=== PATIENT | female | born 1965 | race Caucasian/White ===

== ENCOUNTER 2020-11-04 12:58 | Emergency (ER) | payer MEDICARE, OTHER ==
[~2020-11-04] VITALS: Ht 162.6 cm; Wt 136.4 kg
[~2020-11-04 12:58] MED LIST: TNFMISC
[2020-11-04] MEDS ORDERED: BENZ2TAB10 PO (13:09)
[2020-11-04] MEDS ORDERED: ZOLP-280 PO (13:09)
[2020-11-04] MEDS ORDERED: CHOL500013 PO (13:09)
[2020-11-04] MEDS ORDERED: FLUO20CA36 PO (13:09)
[2020-11-04] MEDS ORDERED: TOPI100T37 PO (13:09)
[2020-11-04] MEDS ORDERED: IBUPROFEN 600 MG TABLET PO ONE (15:00)
[2020-11-04 15:49] LABS: BASOPHILS % (AUTO) 0.6 % (0.0-2.0); HEMATOCRIT 37.8 % (36-46); HEMOGLOBIN 12.4 g/dL (12.0-16.0); LYMPHOCYTES # (AUTO) 1.6 K/uL (1.0-4.8); LYMPHOCYTES % (AUTO) 18.5 % (22.0-44.0); MEAN CORPUSCULAR HEMOGLOBIN 29.5 pg (26.0-34.0); MEAN CORPUSCULAR HGB CONC 32.8 G/dL (31.0-37.0); MEAN CORPUSCULAR VOLUME 90 fL (80-100); MONOCYTES # (AUTO) 0.6 K/uL (0.1-1.0); MONOCYTES % (AUTO) 7.1 % (2.0-9.0); NEUTROPHILS # (AUTO) 6.1 K/uL (1.8-7.7); NEUTROPHILS % (AUTO) 71.8 % (40.0-70.0); PLATELET COUNT (AUTO) 235 K/uL (150-450); RED CELL DISTRIBUTION WIDTH 13.2 % (11.5-14.5)
[2020-11-04 16:07] LABS: ANION GAP 8 mmol/L (8-16); CALCIUM, TOTAL 8.7 mg/dL (8.8-10.5); CARBON DIOXIDE 25 mmol/L (22-29); CHLORIDE 105 mmol/L (98-107); CREATININE 0.92 mg/dL (0.60-1.30); GLOMERULAR FILTR. RATE CALC > 60 mL/min (>60); GLUCOSE,RANDOM 94 mg/dL (70-110); POTASSIUM 4.2 mmol/L (3.5-5.1); SODIUM SERUM 138 mmol/L (136-145); UREA NITROGEN, BLOOD 12 mg/dL (7-18)
[2020-11-04 16:13] LABS: ALANINE AMINOTRANSFERASE 16 U/L (12-78); ALBUMIN 3.5 g/dL (3.4-5.0); ALKALINE PHOSPHATASE 74 U/L (46-116); ASPARTATE AMINOTRANSFERASE 9 U/L (15-37); BILIRUBIN,TOTAL 0.3 mg/dL (0.1-1.0); TOTAL PROTEIN, SERUM 7.2 g/dL (6.4-8.2)
[2020-11-04 17:10] VITALS: BP 132/103
== END 2020-11-04 17:59 | disposition home or self-care (01) ==
LOC: EMS 13:12
DX: M13.872 Other specified arthritis, left ankle and foot (principal); M13.871 Other specified arthritis, right ankle and foot; R25.2 Cramp and spasm; R60.0 Localized edema; Z59.0 Homelessness
CPT/HCPCS: 80053; 85025; 85379; 93970; 99284

== ENCOUNTER 2021-11-16 01:00 | Emergency (ER) | payer MEDICARE, OTHER ==
[~2021-11-16] VITALS: Ht 160 cm; Wt 136.4 kg
[~2021-11-16 01:00] MED LIST changes: +BENZ2TAB76 PO; +CHOL500013 PO; +FLUO20CA36 PO; -TNFMISC; +TOPI100T37 PO; +ZOLP-280 PO
[2021-11-16 03:30] VITALS: BP 137/81
== END 2021-11-16 04:07 | disposition home or self-care (01) ==
LOC: EMS 01:01
DX: M54.2 Cervicalgia (principal); Z79.899 Other long term (current) drug therapy
CPT/HCPCS: 99281; Z7502

== ENCOUNTER 2023-07-17 16:32 | Emergency (ER) | payer OTHER ==
[~2023-07-17] VITALS: Ht 162.6 cm; Wt 136.4 kg
[~2023-07-17 16:32] MED LIST changes: +BENZ2TAB71 PO; -BENZ2TAB76 PO
[2023-07-17 16:53] VITALS: TEMP 97.5
[2023-07-17 17:23] LABS: BASOPHILS % (AUTO) 0.5 % (0.0-2.0); EOSINOPHILS % (AUTO) 1.5 % (1.0-6.0); HEMATOCRIT 37.6 % (36-46); HEMOGLOBIN 12.3 g/dL (12.0-16.0); LYMPHOCYTES # (AUTO) 0.8 K/uL (1.0-4.8); LYMPHOCYTES % (AUTO) 20.3 % (22.0-44.0); MEAN CORPUSCULAR HEMOGLOBIN 29.6 pg (26.0-34.0); MEAN CORPUSCULAR HGB CONC 32.8 G/dL (31.0-37.0); MEAN CORPUSCULAR VOLUME 90 fL (80-100); MONOCYTES # (AUTO) 0.7 K/uL (0.1-1.0); MONOCYTES % (AUTO) 16.6 % (2.0-9.0); NEUTROPHILS # (AUTO) 2.5 K/uL (1.8-7.7); NEUTROPHILS % (AUTO) 61.1 % (40.0-70.0); PLATELET COUNT (AUTO) 214 K/uL (150-450); RED BLOOD CELL COUNT(AUTO) 4.17 MIL/uL (4.00-5.20); RED CELL DISTRIBUTION WIDTH 13.9 % (11.5-14.5)
[2023-07-17 17:35] LABS: ANION GAP 9 mmol/L (8-16); CALCIUM, TOTAL 9.1 mg/dL (8.8-10.5); CARBON DIOXIDE 26 mmol/L (22-29); CHLORIDE 104 mmol/L (98-107); CREATININE 0.87 mg/dL (0.60-1.30); GLOMERULAR FILTR. RATE CALC > 60 mL/min (>60); GLUCOSE,RANDOM 101 mg/dL (70-110); POTASSIUM 4.1 mmol/L (3.5-5.1); SODIUM SERUM 139 mmol/L (136-145); UREA NITROGEN, BLOOD 19 mg/dL (7-18)
[2023-07-17 17:41] LABS: ALANINE AMINOTRANSFERASE 23 U/L (12-78); ALBUMIN 3.2 g/dL (3.4-5.0); ALKALINE PHOSPHATASE 94 U/L (46-116); ASPARTATE AMINOTRANSFERASE 13 U/L (15-37); BILIRUBIN,TOTAL 0.1 mg/dL (0.1-1.0); LIPASE 37 U/L (16-77)
[2023-07-17 17:42] LABS: TROPONIN I-HIGH SENSITIVITY 10 ng/L (<51)
[2023-07-17 17:43] LABS: LACTIC ACID 0.9 mmol/L (0.4-2.0)
[2023-07-17] MEDS ORDERED: ACET-66 PO (18:29)
[2023-07-17] MEDS: ACETAMINOPHEN 500 MG TABLET PO ONE (18:40)
[2023-07-17 18:46] VITALS: BP 132/70; PULSE 79; RESP 16
== END 2023-07-17 19:08 | disposition home or self-care (01) ==
LOC: EMS 16:35
DX: N95.9 Unspecified menopausal and perimenopausal disorder (principal); F20.9 Schizophrenia, unspecified; F10.20 Alcohol dependence, uncomplicated; Z59.00 Homelessness unspecified; Z90.89 Acquired absence of other organs; Y90.9 Presence of alcohol in blood, level not specified
CPT/HCPCS: 99284; 80053; 83605; 83690; 84484; 85025; 36415; 93005; G0480

== ENCOUNTER 2023-08-28 16:25 | Emergency (ER) | payer OTHER ==
[~2023-08-28] VITALS: Ht 162.6 cm; Wt 137.0 kg
[~2023-08-28 16:25] MED LIST changes: +ACET-66 PO
[2023-08-28 19:49] LABS: BASOPHILS % (AUTO) 0.5 % (0.0-2.0); EOSINOPHILS % (AUTO) 1.3 % (1.0-6.0); HEMATOCRIT 36.6 % (36-46); HEMOGLOBIN 12.2 g/dL (12.0-16.0); LYMPHOCYTES # (AUTO) 2.2 K/uL (1.0-4.8); LYMPHOCYTES % (AUTO) 25.1 % (22.0-44.0); MEAN CORPUSCULAR HEMOGLOBIN 30.3 pg (26.0-34.0); MEAN CORPUSCULAR HGB CONC 33.3 G/dL (31.0-37.0); MEAN CORPUSCULAR VOLUME 91 fL (80-100); MONOCYTES # (AUTO) 0.6 K/uL (0.1-1.0); MONOCYTES % (AUTO) 7.1 % (2.0-9.0); NEUTROPHILS # (AUTO) 5.7 K/uL (1.8-7.7); PLATELET COUNT (AUTO) 248 K/uL (150-450); RED BLOOD CELL COUNT(AUTO) 4.03 MIL/uL (4.00-5.20); RED CELL DISTRIBUTION WIDTH 13.9 % (11.5-14.5); WHITE BLOOD COUNT (AUTO) 8.7 K/uL (4.5-11.0)
[2023-08-28 19:59] LABS: ANION GAP 7 mmol/L (8-16); CALCIUM, TOTAL 9.2 mg/dL (8.8-10.5); CARBON DIOXIDE 27 mmol/L (22-29); CHLORIDE 106 mmol/L (98-107); CREATININE 0.86 mg/dL (0.60-1.30); GLOMERULAR FILTR. RATE CALC > 60 mL/min (>60); GLUCOSE,RANDOM 105 mg/dL (70-110); POTASSIUM 4.6 mmol/L (3.5-5.1); SODIUM SERUM 140 mmol/L (136-145); UREA NITROGEN, BLOOD 16 mg/dL (7-18)
[2023-08-28 20:05] LABS: ALANINE AMINOTRANSFERASE 20 U/L (12-78); ALBUMIN 2.9 g/dL (3.4-5.0); ALCOHOL, BLOOD (SERUM) < 3 mg/dL (0-10); ALKALINE PHOSPHATASE 80 U/L (46-116); ASPARTATE AMINOTRANSFERASE 12 U/L (15-37); BILIRUBIN,TOTAL 0.2 mg/dL (0.1-1.0); LIPASE 24 U/L (16-77); TOTAL PROTEIN, SERUM 7.1 g/dL (6.4-8.2)
[2023-08-28 20:07] LABS: B-TYPE NATRIURETIC PEPTIDE 25 pg/mL (0-100); LACTIC ACID 1.3 mmol/L (0.4-2.0); TROPONIN I-HIGH SENSITIVITY 10 ng/L (<51)
[2023-08-28 21:57] VITALS: BP 150/82; PULSE 72; RESP 18; TEMP 98
== END 2023-08-29 00:57 | disposition home or self-care (01) ==
LOC: EMS 16:25
DX: R07.89 Other chest pain (principal); F20.0 Paranoid schizophrenia; F32.A Depression, unspecified; Z59.00 Homelessness unspecified
CPT/HCPCS: 99285; 71045; 80053; 83605; 83690; 83880; 84484; 85025; 36415; 93005; G0480

== ENCOUNTER → 2024-04-14 | Emergency (ER) | payer OTHER ==
[~2024-04-14] VITALS: Ht 162.6 cm; Wt 136.0 kg
[~2024-04-14] MED LIST changes: +ACET-2247 PO; -BENZ2TAB71 PO; +BENZ2TAB84 PO; +FLUO-418 PO; -FLUO20CA36 PO; +IBUP-1492 PO
[2024-04-14 09:58] VITALS: BP 159/94; PULSE 84; RESP 20; TEMP 98.9; O2SAT 96
[2024-04-14] MEDS: KETOROLAC TROMETHAMINE 30 MG/ML VIAL IM ONE (11:56)
== END | disposition home or self-care (01) ==
LOC: EMS 09:13
DX: S63.502A Unspecified sprain of left wrist, initial encounter (principal); F20.9 Schizophrenia, unspecified; F32.A Depression, unspecified; Z59.00 Homelessness unspecified; Z79.899 Other long term (current) drug therapy; W01.0XXA Fall on same level from slipping, tripping and stumbling without subsequent striking against object, initial encounter; Y93.89 Activity, other specified; Y92.89 Other specified places as the place of occurrence of the external cause; Y99.8 Other external cause status
CPT/HCPCS: 73200; 96372; 99285; J1885

== ENCOUNTER 2024-04-21 09:47 | Emergency (ER) | payer OTHER ==
[~2024-04-21] VITALS: Ht 162.6 cm; Wt 136.4 kg
[2024-04-21 10:04] VITALS: TEMP 98.3
[2024-04-21] MEDS: KETOROLAC TROMETHAMINE 30 MG/ML VIAL IM ONE (12:34)
[2024-04-21 15:32] VITALS: BP 131/77; PULSE 80; RESP 14; O2SAT 96
== END 2024-04-21 15:43 | disposition home or self-care (01) ==
LOC: EMS 09:47
DX: M25.531 Pain in right wrist (principal); M25.511 Pain in right shoulder; M25.512 Pain in left shoulder; F32.A Depression, unspecified; F20.9 Schizophrenia, unspecified; Z59.00 Homelessness unspecified; Z79.899 Other long term (current) drug therapy
CPT/HCPCS: 99284; 73000; 73110; 29125; 96372; J1885

== ENCOUNTER 2024-07-01 11:44 | Inpatient (IN) | payer MEDICARE, MEDICAID ==
[~2024-07-01] VITALS: Ht 167.6 cm; Wt 155.0 kg
[~2024-07-01 11:44] MED LIST changes: +TOPI-258 PO; -TOPI100T37 PO
[2024-07-01 12:31] LABS: BASOPHILS % (AUTO) 0.5 % (0.0-2.0); EOSINOPHILS % (AUTO) 1.9 % (1.0-6.0); HEMATOCRIT 34.8 % (36-46); HEMOGLOBIN 11.2 g/dL (12.0-16.0); LYMPHOCYTES # (AUTO) 1.3 K/uL (1.0-4.8); LYMPHOCYTES % (AUTO) 20.5 % (22.0-44.0); MEAN CORPUSCULAR HEMOGLOBIN 28.9 pg (26.0-34.0); MEAN CORPUSCULAR HGB CONC 32.3 G/dL (31.0-37.0); MEAN CORPUSCULAR VOLUME 89 fL (80-100); MONOCYTES # (AUTO) 0.6 K/uL (0.1-1.0); MONOCYTES % (AUTO) 8.9 % (2.0-9.0); NEUTROPHILS # (AUTO) 4.3 K/uL (1.8-7.7); NEUTROPHILS % (AUTO) 68.2 % (40.0-70.0); PLATELET COUNT (AUTO) 247 K/uL (150-450); RED CELL DISTRIBUTION WIDTH 14.1 % (11.5-14.5); WHITE BLOOD COUNT (AUTO) 6.3 K/uL (4.5-11.0)
[2024-07-01 12:47] LABS: ANION GAP 3 mmol/L (8-16); CARBON DIOXIDE 31 mmol/L (22-29); CHLORIDE 102 mmol/L (98-107); CREATININE 0.93 mg/dL (0.60-1.30); GLOMERULAR FILTR. RATE CALC > 60 mL/min (>60); GLUCOSE,RANDOM 99 mg/dL (70-110); POTASSIUM 4.2 mmol/L (3.5-5.1); SODIUM SERUM 136 mmol/L (136-145); UREA NITROGEN, BLOOD 14 mg/dL (7-18)
[2024-07-01 13:12] LABS: ALCOHOL, BLOOD (SERUM) < 3 mg/dL (0-10)
[2024-07-01] MEDS ORDERED: HALOPERIDOL 5 MG TABLET PO PRN (14:30)
[2024-07-01 14:35] LABS: COVID AG,FIA SOURCE NASAL SWAB
[2024-07-01 14:39] LABS: APPEARANCE,URINE HAZY (CLEAR); BILIRUBIN,URINE NEGATIVE (NEGATIVE); COLOR,URINE LIGHT YELLOW (YELLOW); GLUCOSE, URINE (UA) NEGATIVE (NEGATIVE); KETONES,URINE NEGATIVE (NEGATIVE); LEUKOCYTE ESTERASE ,URINE LARGE (NEGATIVE); NITRATE,URINE POSITIVE (NEGATIVE); OCCULT BLOOD,URINE TRACE (NEGATIVE); PROTEIN,URINE TRACE mg/dL (NEGATIVE); SPECIFIC GRAVITIY, URINE 1.008 (1.003-1.030); UROBILINOGEN,URINE <=1.0 mg/dL (<=1.0)
[2024-07-01 14:55] LABS: ALCOHOL, URINE DRUG SCREEN NEGATIVE (NEGATIVE); AMPHET/METH SCREEN,URINE NEGATIVE (NEGATIVE); BARBITURATE SCREEN, URINE NEGATIVE (NEGATIVE); BENZODIAZEPINES SCREEN,URINE NEGATIVE (NEGATIVE); CANNABINOID SCREEN,URINE NEGATIVE (NEGATIVE); COCAINE SCREEN,URINE NEGATIVE (NEGATIVE); METHADONE SCREEN, URINE NEGATIVE (NEGATIVE); OPIATE SCREEN,URINE NEGATIVE (NEGATIVE); PHENCYCLIDINE SCREEN,URINE NEGATIVE (NEGATIVE)
[2024-07-01 14:56] LABS: SARS-COV2 (COVID) ANTIGEN,FIA Negative (Negative)
[2024-07-01 14:57] LABS: BACTERIA,URINE Many /HPF (None Seen); RBC,URINE 0-2 /HPF (0-2); SQUAMOUS EPITHELIAL CELL,UR Few /LPF (None Seen); WBC,URINE 26-50 /HPF (0-5)
[2024-07-01] MEDS: ACETAMINOPHEN 500 MG TABLET PO ONE (18:44)
[2024-07-01] MEDS: LORazepam 2 MG TABLET PO PRN (18:44)
[2024-07-01 19:25] VITALS: O2SAT 98
[2024-07-01] MEDS: CEPHALEXIN MONOHYDRATE 500 MG CAPSULE PO ONE (21:00)
[2024-07-01 23:12] VITALS: BP 148/78; PULSE 78; RESP 18; TEMP 97.5; O2SAT 100
[2024-07-02] MEDS ORDERED: INFLUENZA VIRUS VACCINE TVS (6MO+) 2024-25/PF 45 MCG/0.5 ML SYRINGE IM. ONE (00:15)
[2024-07-02] MEDS ORDERED: PETROLATUM,WHITE 28 GM JELLY TP PRN (07:30)
[2024-07-02] MEDS ORDERED: OMEPRAZOLE 20 MG CAPSULE PO PRN (07:30)
[2024-07-02] MEDS ORDERED: CloNIDine HCL 0.1 MG TABLET PO PRN (07:30)
[2024-07-02] MEDS ORDERED: ACETAMINOPHEN 325 MG TABLET PO PRN (07:30)
[2024-07-02] MEDS ORDERED: MAG HYDROX/ALUMINUM HYD/SIMETH ES 30 ML SUSPENSION UDCUP PO PRN (07:30)
[2024-07-02] MEDS ORDERED: DOCUSATE SODIUM 100 MG CAPSULE PO PRN (07:30)
[2024-07-02] MEDS ORDERED: MAGNESIUM HYDROXIDE SUSPENSION 30 ML UDCUP PO PRN (07:30)
[2024-07-02] MEDS ORDERED: ALBUTEROL SULFATE HFA 90 MCG/PUFF 8 GM INHALER IH PRN (07:30)
[2024-07-02] MEDS ORDERED: BENZOCAINE/MENTHOL LOZENGE PO PRN (07:30)
[2024-07-02] MEDS ORDERED: ONDANSETRON 4 MG TABLET PO PRN (07:30)
[2024-07-02] MEDS ORDERED: LOPERAMIDE HCL 2 MG CAPSULE PO PRN (07:30)
[2024-07-02] MEDS ORDERED: BACITRACIN 28 GM OINTMENT TP PRN (07:30)
[2024-07-02] MEDS: CEPHALEXIN MONOHYDRATE 500 MG CAPSULE PO SCH (08:10)
[2024-07-02 08:24] LABS: HEMOGLOBIN A1C 5.7 % (3.8-5.6)
[2024-07-02 08:52] LABS: CHOL/HDL RATIO 3.1 (3.9-5.7)
[2024-07-02 09:00] VITALS: BP 141/75; PULSE 94; RESP 18; TEMP 97.9; O2SAT 99
[2024-07-02 16:27] VITALS: BP 147/81; PULSE 88; RESP 17; TEMP 98; O2SAT 97
[2024-07-02] MEDS: IBUPROFEN 600 MG TABLET PO PRN (16:27)
[2024-07-02] MEDS: BENZTROPINE MESYLATE 2 MG TABLET PO SCH (16:27)
[2024-07-02] MEDS: FLUoxetine HCL 20 MG CAPSULE PO SCH (16:27)
[2024-07-02] MEDS: TOPIRAMATE 100 MG TABLET PO SCH (16:28)
[2024-07-02 20:18] VITALS: RESP 18
[2024-07-03 09:19] VITALS: BP 141/72; PULSE 76; RESP 19; TEMP 97.7; O2SAT 98
[2024-07-03 13:32] VITALS: BP 141/72; PULSE 76; RESP 19; TEMP 97.7; O2SAT 98
[2024-07-03 14:32] VITALS: BP 142/73; PULSE 78; RESP 18; TEMP 97.2; O2SAT 97
[2024-07-03 20:12] VITALS: BP 146/64; PULSE 71; RESP 18; TEMP 97.6; O2SAT 97
[2024-07-04] MEDS: ZOLPIDEM TARTRATE 10 MG TABLET PO PRN (00:41)
[2024-07-04 09:43] VITALS: BP 159/72; PULSE 80; RESP 20; TEMP 97.7; O2SAT 96
[2024-07-04 14:40] VITALS: BP 149/72; PULSE 78; RESP 18; TEMP 97.9; O2SAT 97
[2024-07-04 20:37] VITALS: BP 146/66; PULSE 68; RESP 18; TEMP 98.2; O2SAT 97
[2024-07-05 08:16] VITALS: BP 143/73; PULSE 70; RESP 18; TEMP 97.4; O2SAT 95
[2024-07-05] MEDS ORDERED: CEPH-558 PO (11:56)
[2024-07-06] MEDS ORDERED: METO50 PO (14:05)
[2024-07-06] MEDS ORDERED: GABA-529 PO (14:05)
[2024-07-06] MEDS ORDERED: HYDR-4808 PO (14:05)
[2024-07-06] MEDS ORDERED: CARI3CAP PO (14:05)
[2024-07-06] MEDS ORDERED: CHOL500045 PO (14:05)
== END 2024-07-05 14:10 | disposition home or self-care (01) | DRG 885 ==
LOC: EMS 11:44 → 3EI 20:37
PROVIDERS: ADMIT Psychiatry & Neurology Psychiatry; ATTEND Psychiatry & Neurology Psychiatry
PROC: GZHZZZZ Group Psychotherapy (ICD-10-PCS; principal; 2024-07-02)
PROC: GZ56ZZZ Individual Psychotherapy, Supportive (ICD-10-PCS; 2024-07-02)
DX: F33.2 Major depressive disorder, recurrent severe without psychotic features (principal); R45.851 Suicidal ideations; Z59.00 Homelessness unspecified; E66.9 Obesity, unspecified; F41.9 Anxiety disorder, unspecified; G47.00 Insomnia, unspecified; I10 Essential (primary) hypertension; K59.00 Constipation, unspecified; Z20.822 Contact with and (suspected) exposure to COVID-19; F10.20 Alcohol dependence, uncomplicated; K21.9 Gastro-esophageal reflux disease without esophagitis
CPT/HCPCS: 80048; 80061; 80307; 81001; 83036; 85025; 87086; 99285; G0480

== ENCOUNTER 2024-07-07 11:57 | Day surgery (SDC) | payer OTHER ==
[~2024-07-07] VITALS: Ht 162.6 cm; Wt 159.1 kg
[~2024-07-07 11:57] MED LIST changes: -ACET-2247 PO; -ACET-66 PO; +CARI3CAP PO; +CEPH-558 PO; -CHOL500013 PO; +CHOL500045 PO; +GABA-529 PO; +HYDR-4808 PO; -IBUP-1492 PO; +METO50 PO; +SODIUM CHLORIDE 0.9% 1,000 ML IV ONE; -ZOLP-280 PO
[2024-07-07] MEDS ORDERED: OXYGEN THERAPY IH SCH (20:00)
== END 2024-07-07 15:08 | disposition home or self-care (01) ==
LOC: SURGERY 11:57
PROVIDERS: ATTEND Specialist
DX: R19.4 Change in bowel habit (principal); F41.9 Anxiety disorder, unspecified; F32.A Depression, unspecified; I10 Essential (primary) hypertension; Z79.899 Other long term (current) drug therapy; Z98.890 Other specified postprocedural states; K80.20 Calculus of gallbladder without cholecystitis without obstruction
CPT/HCPCS: Z7512; Z7610

== ENCOUNTER 2024-07-22 20:12 | Emergency (ER) | payer OTHER ==
[~2024-07-22] VITALS: Ht 162.6 cm; Wt 136.4 kg
[~2024-07-22 20:12] MED LIST changes: -SODIUM CHLORIDE 0.9% 1,000 ML IV ONE
[2024-07-22 20:19] VITALS: TEMP 98.2
[2024-07-22] MEDS: KETOROLAC TROMETHAMINE 30 MG/ML VIAL IM ONE (23:19)
[2024-07-22 23:26] VITALS: BP 116/85; PULSE 65; RESP 16; O2SAT 98
[2024-07-22 23:31] LABS: BASOPHILS % (AUTO) 0.6 % (0.0-2.0); HEMATOCRIT 38.1 % (36-46); HEMOGLOBIN 12.4 g/dL (12.0-16.0); LYMPHOCYTES # (AUTO) 2.2 K/uL (1.0-4.8); LYMPHOCYTES % (AUTO) 21.6 % (22.0-44.0); MEAN CORPUSCULAR HEMOGLOBIN 29.2 pg (26.0-34.0); MEAN CORPUSCULAR HGB CONC 32.6 G/dL (31.0-37.0); MEAN CORPUSCULAR VOLUME 90 fL (80-100); MONOCYTES # (AUTO) 0.8 K/uL (0.1-1.0); MONOCYTES % (AUTO) 7.9 % (2.0-9.0); NEUTROPHILS # (AUTO) 6.8 K/uL (1.8-7.7); NEUTROPHILS % (AUTO) 67.9 % (40.0-70.0); PLATELET COUNT (AUTO) 238 K/uL (150-450); RED BLOOD CELL COUNT(AUTO) 4.26 MIL/uL (4.00-5.20); RED CELL DISTRIBUTION WIDTH 14.1 % (11.5-14.5); WHITE BLOOD COUNT (AUTO) 10.1 K/uL (4.5-11.0)
[2024-07-22 23:42] LABS: CALCIUM, TOTAL 9.6 mg/dL (8.8-10.5); CREATININE 0.98 mg/dL (0.60-1.30); POTASSIUM 4.8 mmol/L (3.5-5.1)
[2024-07-22] MEDS ORDERED: IBUP-1492 PO (23:57)
== END 2024-07-23 00:56 | disposition home or self-care (01) ==
LOC: EMS 20:12
DX: G50.0 Trigeminal neuralgia (principal); F20.9 Schizophrenia, unspecified; F32.A Depression, unspecified; F10.20 Alcohol dependence, uncomplicated; Z59.00 Homelessness unspecified; Z79.899 Other long term (current) drug therapy; Y90.9 Presence of alcohol in blood, level not specified
CPT/HCPCS: 99283; 80048; 85025; 96372; J1885

== ENCOUNTER 2024-08-01 14:59 | Emergency (ER) | payer OTHER ==
[~2024-08-01] VITALS: Ht 162.6 cm; Wt 156.0 kg
[~2024-08-01 14:59] MED LIST changes: +IBUP-1492 PO
[2024-08-01 15:24] VITALS: BP 148/70; PULSE 82; RESP 20; TEMP 98.1; O2SAT 96
[2024-08-01] MEDS ORDERED: ATOR40TA71 PO (15:24)
[2024-08-01] MEDS: LORazepam 1 MG TABLET PO ONE (17:23)
[2024-08-01] MEDS: HydrOXYzine PAMOATE 25 MG CAPSULE PO ONE (17:23)
[2024-08-01] MEDS ORDERED: RISP-32 PO (18:20)
[2024-08-01] MEDS ORDERED: HYDR-4808 PO (18:20)
[2024-08-01] MEDS ORDERED: RisperiDONE 1 MG TABLET PO SCH (21:00)
== END 2024-08-01 20:48 | disposition home or self-care (01) ==
LOC: EMS 14:59
DX: F25.1 Schizoaffective disorder, depressive type (principal); F41.9 Anxiety disorder, unspecified; G47.00 Insomnia, unspecified; I10 Essential (primary) hypertension; F10.20 Alcohol dependence, uncomplicated; Z59.00 Homelessness unspecified; Z79.899 Other long term (current) drug therapy
CPT/HCPCS: 99283

== ENCOUNTER 2024-08-07 10:07 | Emergency (ER) | payer OTHER ==
[~2024-08-07] VITALS: Ht 162.6 cm; Wt 150.0 kg
[~2024-08-07 10:07] MED LIST changes: +ATOR40TA71 PO; -BENZ2TAB84 PO; -CEPH-558 PO; -FLUO-418 PO; -GABA-529 PO; -IBUP-1492 PO; +RISP-32 PO
[2024-08-07 10:21] VITALS: TEMP 97.7
[2024-08-07 10:55] LABS: BASOPHILS % (AUTO) 0.5 % (0.0-2.0); EOSINOPHILS % (AUTO) 2.7 % (1.0-6.0); HEMATOCRIT 32.8 % (36-46); HEMOGLOBIN 10.9 g/dL (12.0-16.0); LYMPHOCYTES # (AUTO) 1.2 K/uL (1.0-4.8); LYMPHOCYTES % (AUTO) 20.6 % (22.0-44.0); MEAN CORPUSCULAR HEMOGLOBIN 29.6 pg (26.0-34.0); MEAN CORPUSCULAR HGB CONC 33.4 G/dL (31.0-37.0); MEAN CORPUSCULAR VOLUME 89 fL (80-100); MONOCYTES # (AUTO) 0.5 K/uL (0.1-1.0); MONOCYTES % (AUTO) 8.3 % (2.0-9.0); NEUTROPHILS # (AUTO) 3.9 K/uL (1.8-7.7); NEUTROPHILS % (AUTO) 67.9 % (40.0-70.0); PLATELET COUNT (AUTO) 202 K/uL (150-450); RED BLOOD CELL COUNT(AUTO) 3.69 MIL/uL (4.00-5.20); RED CELL DISTRIBUTION WIDTH 14.8 % (11.5-14.5); WHITE BLOOD COUNT (AUTO) 5.8 K/uL (4.5-11.0)
[2024-08-07 11:00] LABS: ANION GAP 6 mmol/L (8-16); CALCIUM, TOTAL 8.9 mg/dL (8.8-10.5); CARBON DIOXIDE 31 mmol/L (22-29); CHLORIDE 104 mmol/L (98-107); GLOMERULAR FILTR. RATE CALC > 60 mL/min (>60); GLUCOSE,RANDOM 100 mg/dL (70-110); SODIUM SERUM 141 mmol/L (136-145); UREA NITROGEN, BLOOD 15 mg/dL (7-18)
[2024-08-07 11:05] LABS: ALBUMIN 2.6 g/dL (3.4-5.0); BILIRUBIN,DIRECT 0.1 mg/dL (0.00-0.20); BILIRUBIN,TOTAL 0.2 mg/dL (0.1-1.0); TOTAL PROTEIN, SERUM 6.7 g/dL (6.4-8.2)
[2024-08-07 11:09] LABS: CREATINE KINASE, TOTAL ONLY 46 U/L (26-192); TROPONIN I-HIGH SENSITIVITY 13 ng/L (<51)
[2024-08-07 11:12] LABS: B-TYPE NATRIURETIC PEPTIDE 70 pg/mL (0-100)
[2024-08-07 12:20] VITALS: BP 124/72; PULSE 82; RESP 16; O2SAT 97
[2024-08-07] MEDS ORDERED: LORA1TAB25 PO (12:23)
[2024-08-07] MEDS: LORazepam 1 MG TABLET PO ONE (12:32)
[2024-08-07] MEDS: HydrOXYzine PAMOATE 25 MG CAPSULE PO ONE (12:32)
== END 2024-08-07 12:47 | disposition home or self-care (01) ==
LOC: EMS 10:07
DX: S46.912A Strain of unspecified muscle, fascia and tendon at shoulder and upper arm level, left arm, initial encounter (principal); F41.9 Anxiety disorder, unspecified; F25.1 Schizoaffective disorder, depressive type; G47.00 Insomnia, unspecified; R07.89 Other chest pain; F10.20 Alcohol dependence, uncomplicated; I10 Essential (primary) hypertension; Z59.00 Homelessness unspecified; Z79.899 Other long term (current) drug therapy
CPT/HCPCS: 71045; 80048; 80076; 82550; 83880; 84484; 85025; 93005; 99285; 36415-L1; 36415-TC

== ENCOUNTER 2024-09-04 06:29 | Emergency (ER) | payer OTHER ==
[~2024-09-04] VITALS: Ht 162.6 cm; Wt 90.9 kg
[~2024-09-04 06:29] MED LIST changes: +CEPH-558 PO; +LORA1TAB25 PO
[2024-09-04 07:31] LABS: BASOPHILS % (AUTO) 0.4 % (0.0-2.0); EOSINOPHILS % (AUTO) 1.7 % (1.0-6.0); HEMATOCRIT 33.5 % (36-46); LYMPHOCYTES # (AUTO) 1.4 K/uL (1.0-4.8); LYMPHOCYTES % (AUTO) 25.2 % (22.0-44.0); MEAN CORPUSCULAR HEMOGLOBIN 29.2 pg (26.0-34.0); MEAN CORPUSCULAR HGB CONC 32.8 G/dL (31.0-37.0); MEAN CORPUSCULAR VOLUME 89 fL (80-100); MONOCYTES # (AUTO) 0.6 K/uL (0.1-1.0); MONOCYTES % (AUTO) 9.8 % (2.0-9.0); NEUTROPHILS # (AUTO) 3.6 K/uL (1.8-7.7); NEUTROPHILS % (AUTO) 62.9 % (40.0-70.0); PLATELET COUNT (AUTO) 222 K/uL (150-450); RED BLOOD CELL COUNT(AUTO) 3.77 MIL/uL (4.00-5.20); RED CELL DISTRIBUTION WIDTH 14.4 % (11.5-14.5); WHITE BLOOD COUNT (AUTO) 5.7 K/uL (4.5-11.0)
[2024-09-04 07:43] LABS: ANION GAP 3 mmol/L (8-16); CALCIUM, TOTAL 9.1 mg/dL (8.8-10.5); CARBON DIOXIDE 32 mmol/L (22-29); CHLORIDE 105 mmol/L (98-107); CREATININE 0.89 mg/dL (0.60-1.30); GLOMERULAR FILTR. RATE CALC > 60 mL/min (>60); GLUCOSE,RANDOM 99 mg/dL (70-110); POTASSIUM 4.4 mmol/L (3.5-5.1); SODIUM SERUM 140 mmol/L (136-145); UREA NITROGEN, BLOOD 15 mg/dL (7-18)
[2024-09-04 07:51] LABS: APPEARANCE,URINE CLEAR (CLEAR); BILIRUBIN,URINE NEGATIVE (NEGATIVE); COLOR,URINE LIGHT YELLOW (YELLOW); GLUCOSE, URINE (UA) NEGATIVE (NEGATIVE); KETONES,URINE NEGATIVE (NEGATIVE); LEUKOCYTE ESTERASE ,URINE TRACE (NEGATIVE); OCCULT BLOOD,URINE NEGATIVE (NEGATIVE); PROTEIN,URINE NEGATIVE (NEGATIVE); SPECIFIC GRAVITIY, URINE 1.018 (1.003-1.030); UROBILINOGEN,URINE <=1.0 mg/dL (<=1.0)
[2024-09-04 07:52] LABS: NITRATE,URINE NEGATIVE (NEGATIVE)
[2024-09-04 08:17] LABS: BACTERIA,URINE None Seen /HPF (None Seen); RBC,URINE None Seen /HPF (0-2); SQUAMOUS EPITHELIAL CELL,UR Few /LPF (None Seen); WBC,URINE 0-2 /HPF (0-5)
[2024-09-04 08:47] VITALS: BP 121/67; PULSE 74; RESP 17; TEMP 97.4; O2SAT 96
[2024-09-04] MEDS: CefTRIAXone SODIUM 1 GM/VIAL IM ONE (08:47)
[2024-09-04] MEDS: LIDOCAINE/PF 1% 2 ML VIAL IM ONE (08:47)
[2024-09-05] MEDS ORDERED: METO5TAB95 PO (04:47)
== END 2024-09-04 08:50 | disposition home or self-care (01) ==
LOC: EMS 06:33
DX: R82.81 Pyuria (principal); R30.0 Dysuria; R35.89 Other polyuria; I10 Essential (primary) hypertension; F20.9 Schizophrenia, unspecified; Z59.00 Homelessness unspecified; Z79.899 Other long term (current) drug therapy
CPT/HCPCS: 99285; 71045; 80048; 81001; 85025; 36415; 93005; 96372; J0696; J3490

== ENCOUNTER 2024-09-05 02:05 | Emergency (ER) | payer OTHER ==
[~2024-09-05] VITALS: Ht 162.6 cm; Wt 168.2 kg
[2024-09-05 02:22] VITALS: TEMP 97.7
[2024-09-05] MEDS: IBUPROFEN 400 MG TABLET PO ONE (02:35)
[2024-09-05] MEDS: ACETAMINOPHEN 500 MG TABLET PO ONE (02:35)
[2024-09-05] MEDS: METOCLOPRAMIDE HCL 10 MG TABLET PO ONE (02:35)
[2024-09-05] MEDS ORDERED: METO5TAB95 PO (04:47)
[2024-09-05 05:57] VITALS: BP 137/77; PULSE 89; RESP 18; O2SAT 92
== END 2024-09-05 06:09 | disposition home or self-care (01) ==
LOC: EMS 02:05
DX: R51.9 Headache, unspecified (principal); R11.0 Nausea; I10 Essential (primary) hypertension; F20.9 Schizophrenia, unspecified; Z59.00 Homelessness unspecified; Z79.899 Other long term (current) drug therapy
CPT/HCPCS: 99284; Z7502; Z7610

== ENCOUNTER 2024-09-11 17:13 | Emergency (ER) | payer OTHER ==
[~2024-09-11] VITALS: Ht 162.6 cm; Wt 159.1 kg
[~2024-09-11 17:13] MED LIST changes: -ATOR40TA71 PO; -CARI3CAP PO; -CEPH-558 PO; -CHOL500045 PO; +METO5TAB95 PO
[2024-09-11] MEDS: KETOROLAC TROMETHAMINE 30 MG/ML VIAL IM ONE (20:02)
[2024-09-11 22:40] VITALS: TEMP 98.5
[2024-09-12 00:50] VITALS: BP 110/69; PULSE 84; RESP 16; O2SAT 98
== END 2024-09-12 01:52 | disposition home or self-care (01) ==
LOC: EMS 17:13
DX: M17.0 Bilateral primary osteoarthritis of knee (principal); I10 Essential (primary) hypertension; F20.9 Schizophrenia, unspecified; Z59.00 Homelessness unspecified; Z79.899 Other long term (current) drug therapy
CPT/HCPCS: 99283; 96372; J1885

== ENCOUNTER 2024-09-18 19:57 | Emergency (ER) | payer OTHER ==
[~2024-09-18] VITALS: Ht 162.6 cm; Wt 104.5 kg
[2024-09-18 19:59] VITALS: BP 122/66; PULSE 63; RESP 18; TEMP 97.6; O2SAT 97
[2024-09-18 20:26] LABS: BASOPHILS % (AUTO) 0.3 % (0.0-2.0); EOSINOPHILS % (AUTO) 2.3 % (1.0-6.0); HEMATOCRIT 33.2 % (36-46); HEMOGLOBIN 10.7 g/dL (12.0-16.0); LYMPHOCYTES # (AUTO) 1.2 K/uL (1.0-4.8); LYMPHOCYTES % (AUTO) 22.7 % (22.0-44.0); MEAN CORPUSCULAR HEMOGLOBIN 28.8 pg (26.0-34.0); MEAN CORPUSCULAR HGB CONC 32.2 G/dL (31.0-37.0); MEAN CORPUSCULAR VOLUME 90 fL (80-100); MONOCYTES # (AUTO) 0.5 K/uL (0.1-1.0); NEUTROPHILS # (AUTO) 3.6 K/uL (1.8-7.7); NEUTROPHILS % (AUTO) 65.7 % (40.0-70.0); PLATELET COUNT (AUTO) 229 K/uL (150-450); WHITE BLOOD COUNT (AUTO) 5.4 K/uL (4.5-11.0)
[2024-09-18 20:36] LABS: ANION GAP 5 mmol/L (8-16); CALCIUM, TOTAL 8.9 mg/dL (8.8-10.5); CARBON DIOXIDE 31 mmol/L (22-29); CHLORIDE 104 mmol/L (98-107); CREATININE 0.79 mg/dL (0.60-1.30); GLOMERULAR FILTR. RATE CALC > 60 mL/min (>60); GLUCOSE,RANDOM 112 mg/dL (70-110); POTASSIUM 4.1 mmol/L (3.5-5.1); SODIUM SERUM 139 mmol/L (136-145); UREA NITROGEN, BLOOD 21 mg/dL (7-18)
[2024-09-18 20:44] LABS: TROPONIN I-HIGH SENSITIVITY 9 ng/L (<51)
== END 2024-09-18 21:57 | disposition home or self-care (01) ==
LOC: EMS 19:57
DX: R07.89 Other chest pain (principal); I10 Essential (primary) hypertension; F20.9 Schizophrenia, unspecified; F32.A Depression, unspecified; D64.9 Anemia, unspecified; F10.90 Alcohol use, unspecified, uncomplicated; Z79.899 Other long term (current) drug therapy; Z59.00 Homelessness unspecified; Y90.9 Presence of alcohol in blood, level not specified
CPT/HCPCS: 71045; 80048; 84484; 85025; 93005; 99285; 36415-L1; 36415-TC

== ENCOUNTER 2024-10-03 17:05 | Emergency (ER) | payer OTHER ==
[~2024-10-03] VITALS: Ht 162.6 cm; Wt 172.7 kg
[2024-10-03 17:45] LABS: BASOPHILS % (AUTO) 0.9 % (0.0-2.0); HEMATOCRIT 34.3 % (36-46); HEMOGLOBIN 11.2 g/dL (12.0-16.0); LYMPHOCYTES # (AUTO) 1.6 K/uL (1.0-4.8); MEAN CORPUSCULAR HEMOGLOBIN 28.6 pg (26.0-34.0); MEAN CORPUSCULAR HGB CONC 32.6 G/dL (31.0-37.0); MEAN CORPUSCULAR VOLUME 88 fL (80-100); MONOCYTES # (AUTO) 0.5 K/uL (0.1-1.0); NEUTROPHILS # (AUTO) 2.7 K/uL (1.8-7.7); NEUTROPHILS % (AUTO) 54.1 % (40.0-70.0); PLATELET COUNT (AUTO) 207 K/uL (150-450); RED BLOOD CELL COUNT(AUTO) 3.92 MIL/uL (4.00-5.20); RED CELL DISTRIBUTION WIDTH 14.7 % (11.5-14.5)
[2024-10-03 17:56] LABS: ANION GAP 7 mmol/L (8-16); CALCIUM, TOTAL 9.5 mg/dL (8.8-10.5); CARBON DIOXIDE 29 mmol/L (22-29); CHLORIDE 102 mmol/L (98-107); CREATININE 0.63 mg/dL (0.60-1.30); GLOMERULAR FILTR. RATE CALC > 60 mL/min (>60); GLUCOSE,RANDOM 102 mg/dL (70-110); SODIUM SERUM 138 mmol/L (136-145); UREA NITROGEN, BLOOD 10 mg/dL (7-18)
[2024-10-03 18:02] LABS: TROPONIN I-HIGH SENSITIVITY 12 ng/L (<51)
[2024-10-03 18:21] LABS: B-TYPE NATRIURETIC PEPTIDE 33 pg/mL (0-100)
[2024-10-03 18:37] VITALS: BP 138/89; PULSE 71; RESP 27; O2SAT 96
[2024-10-03] MEDS: LORazepam 1 MG TABLET PO ONE (19:28)
== END 2024-10-03 21:00 | disposition home or self-care (01) ==
LOC: EMS 17:07
DX: R07.89 Other chest pain (principal); F41.0 Panic disorder [episodic paroxysmal anxiety]; I10 Essential (primary) hypertension; F20.9 Schizophrenia, unspecified; Z59.00 Homelessness unspecified; Z79.899 Other long term (current) drug therapy
CPT/HCPCS: 71045; 80048; 83880; 84484; 85025; 93005; 99285; 36415-L1; 36415-TC